=== PATIENT | male | born 1940 | race Caucasian/White ===

== ENCOUNTER 2019-10-04 03:20 | Emergency (ER) | payer OTHER ==
[~2019-10-04] VITALS: Ht 175.3 cm; Wt 74.8 kg
[2019-10-04 03:30] VITALS: BP 155/91
--- NOTE | 2019-10-04 03:30 | NUR ---
PT TRANSFERED TO BED 5 VIA [facility].
--- NOTE | 2019-10-04 03:30 | NUR ---
*COOLING MEASURES IN PLACE.
--- NOTE | 2019-10-04 03:30 | NUR ---
PT 79 Y/O MALE FOUND IN [employer] [place] AND UNABLE TO GET HOME. PT FAMILY CALLED TO COME PICK PT UP BU TTHEY WERE UNAVAILABLE. [facility] [employer] PLACED PT ON [address]150 GRAVELY DISABLED HOLD. PT HAS HX OF DEMENTIA. PT AAO X 2. RESPIRATIONS ARE EVEN AND UNLABORED. SKIN IS WARM AND DRY TO TOUCH. PT DENIES PAIN. DENIES COUGH. TEMP 100.4. DENIES N/V/D. PT RESTING IN BED ON MONITOR. PT BED LOCKED AND IN LOWEST POSTION. MEDHX: DEMENTIA, HTN. ALLERGIES: NKA Addendum: 10/04/19 at 0413 by [email or web address] Higinio LÓPEZ
--- NOTE | 2019-10-04 03:54 | NUR ---
DR ABKER AT BEDSIDE.
--- NOTE | 2019-10-04 04:10 | NUR ---
0410 PER TELEPSYCH REQUEST SENT - CONNECT ID:[id number]
[2019-10-04 04:21] LABS: BASOPHILS # (AUTO) 0.1 K/uL (0.00-0.22); BASOPHILS % (AUTO) 1.5 % (0.0-2.0); EOSINOPHILS % (AUTO) 0.7 % (0.0-4.0); HEMATOCRIT 44.6 % (36-52); HEMOGLOBIN 14.8 g/dL (12.0-18.0); LYMPHOCYTES # (AUTO) 0.9 K/uL (2.0-11.5); MEAN CORPUSCULAR HEMOGLOBIN 31 pg (27-31); MEAN CORPUSCULAR HGB CONC 33 g/dL (33-37); MONOCYTES # (AUTO) 0.5 K/uL (0.8-1.0); MONOCYTES % (AUTO) 9.5 % (1.7-9.3); NEUTROPHILS # (AUTO) 3.8 K/uL (1.8-7.7); NEUTROPHILS % (AUTO) 71.3 % (42.2-75.2); PLATELET COUNT (AUTO) 250 K/uL (140-450); RED BLOOD CELL COUNT(AUTO) 4.85 MIL/uL (4.20-6.10); RED CELL DISTRIBUTION WIDTH 13.4 % (11.6-13.7); WHITE BLOOD COUNT (AUTO) 5.3 K/uL (4.8-10.8)
--- NOTE | 2019-10-04 04:25 | NUR ---
EKG PERFORMED AT BEDSIDE
[2019-10-04 04:39] LABS: ACETAMINOPHEN < 0.5 ug/ml (10-30); ALBUMIN 3.9 g/dL (3.4-5.0); ANION GAP 14.5 (8-16); ASPARTATE AMINOTRANSFERASE 23 U/L (15-37); CARBON DIOXIDE 24.3 mmol/L (21-32); CHLORIDE 105 mmol/L (98-107); CREATININE 1.1 mg/dL (0.6-1.3); GLUCOSE 104 mg/dL (74-106); POTASSIUM 3.8 mmol/L (3.5-5.1); SALICYLATE < 2.8 mg/dL (2.8-20.0); SODIUM SERUM 140 mmol/L (136-145); TOTAL BILIRUBIN 0.5 mg/dL (0.0-1.0); UREA NITROGEN, BLOOD 17 mg/dL (7-18)
--- NOTE | 2019-10-04 04:40 | NUR ---
AND SON AT BEDSIDE.
[2019-10-04 05:14] LABS: BARBITURATE, URINE NEG. ng/ml (NEG <=200); BENZODIAZEPINE, URINE NEG. ng/mL (NEG <=200); CANNABINOID, URINE POS. ng/mL (NEG <=50); COCAINE, URINE NEG. ng/mL (NEG <=300); OPIATE, URINE NEG. ng/mL (NEG <=2000); PHENCYCLIDINE SCREEN,URINE NEG. ng/mL (NEG <=25)
--- NOTE | 2019-10-04 05:20 | NUR ---
PT TEMPERATURE RECHECKED AND NOW AT 98.9. PT ABLE TO VERBALIZE NEEDS. RESPIRATIONS ARE EVEN AND UNLABORED. SKIN IS WARM AND DRY TO TOUCH. PT WALKING BACK AND FORTH AROUND BED, "CAN I LEAVE ALREADY." PT REDIRECTABLE AND SAT IN BED. AND SON AT BEDSIDE. BED LOCKED AND IN LOWEST POSITION.
--- NOTE | 2019-10-04 05:50 | NUR ---
PT TALKING TO TELEPSYCH.
--- NOTE | 2019-10-04 06:10 | NUR ---
PER TELEPSYCH PT DOES NOT MEET CIRTERIA FOR INVOLUNTARY HOLD AND HAS CAPACITY TO MAKE HEALTH CARE DECISIONS. DR BAKER MADE AWARE. Addendum: 10/04/19 at 0649 by [email or web address] *
--- NOTE | 2019-10-04 06:40 | NUR ---
Patient discharged with v/s stable. Written and verbal after care instructions given and explained. Patient verbalized understanding. Ambulatory with steady gait. All questions addressed prior to discharge. Advised to follow up with PMD.
[2019-10-04 06:42] VITALS: BP 148/89
== END 2019-10-04 06:40 | disposition home or self-care (01) ==
LOC: MED 03:20
DX: F79 Unspecified intellectual disabilities (principal); F03.90 Unspecified dementia, unspecified severity, without behavioral disturbance, psychotic disturbance, mood disturbance, and anxiety; Z88.0 Allergy status to penicillin
CPT/HCPCS: 36415; 80053; 80305; 85025; 93005; 99284; G0480; G0482